=== PATIENT | male | born 1955 | race Caucasian/White ===

== ENCOUNTER 2019-05-12 11:44 | Emergency (ER) | payer BC ==
[2019-05-12] MEDS ORDERED: OXYCODONE-ACETAMINOPHEN 5-325 MG TABLET PO ONE (12:09)
--- NOTE | 2019-05-12 12:21 | ER Document Report ---
HPI - HPI Patient complains to provider of: hand injury Time Seen by Provider: 05/12/19 12:06 Onset: Just prior to arrival Onset/Duration: Sudden Quality of pain: Sharp Pain Level: 5 Context: Patient states he was outside trying to avoid a bee and ended up falling onto outstretched hand injuring his right thumb. Patient states his thumb bent backwards and that he did reduce the dislocation. Patient complains of persistent right thumb pain since then. Patient is right-hand dominant. Associated Symptoms: Other - Right thumb injury. denies: Nausea, Vomiting Exacerbated by: Movement Relieved by: Denies Similar symptoms previously: No Recently seen / treated by doctor: No - ROS ROS below otherwise negative: Yes Systems Reviewed and Negative: Yes All other systems reviewed and negative - NEURO Neurology: DENIES: Headache, Weakness - GASTROINTESTINAL Gastrointestinal: DENIES: Nausea - MUSCULOSKELETAL Musculoskeletal: REPORTS: Extremity pain - Right thumb, Swelling - DERM Skin Color: Normal Skin Problems: None Past Medical History - General Information source: Patient - Social History Smoking Status: Never Smoker Chew tobacco use (# tins/day): No Frequency of alcohol use: None Drug Abuse: None Occupation: [employer] Family History: Reviewed & Not Pertinent Patient has suicidal ideation: No Patient has homicidal ideation: No - Past Medical History Cardiac Medical History: Reports: Hx Hypercholesterolemia, Hx Hypertension Renal/ Medical History: Denies: Hx Peritoneal Dialysis Past Surgical History: Reports: Hx Herniorrhaphy Vertical Provider Document - CONSTITUTIONAL Agree With Documented VS: Yes Exam Limitations: No Limitations General Appearance: WD/WN, No Apparent Distress - INFECTION CONTROL TRAVEL OUTSIDE OF THE [place] IN LAST 30 DAYS: No - HEENT HEENT: Atraumatic, Normocephalic - NECK Neck: Normal Inspection - RESPIRATORY Respiratory: Breath Sounds Normal, No Respiratory Distress - CARDIOVASCULAR Cardiovascular: Regular Rate, Regular Rhythm Pulses: Normal: Radial - MUSCULOSKELETAL/EXTREMETIES Musculoskeletal/Extremeties: MAEW, Tender - Patient with tenderness to right CMC and MCP joint, no obvious deformity or dislocation, patient with good flexion and extension, no obvious tendon deficit. - NEURO Level of Consciousness: Awake, Alert, Appropriate Motor/Sensory: No Motor Deficit - DERM Integumentary: Warm, Dry, No Rash Course - Diagnostic Test Radiology reviewed: Image reviewed, Reports reviewed Procedures - Immobilization Right Thumb Pre-Proc Neuro Vasc Exam: Normal Immobilizer type: Thumb spica Performed by: PCT Post-Proc Neuro Vasc Exam: Normal Alignment checked and good: Yes Discharge - Discharge Clinical Impression: Sprain of right thumb Qualifiers: Encounter type: initial encounter Sprain of finger site: unspecified site Qualified Code(s): S63.601A - Unspecified sprain of right thumb, initial encounter Condition: Stable Disposition: HOME, SELF-CARE Instructions: Ice & Elevation ([facility]), Oral Narcotic Medication ([facility]), Splint Precautions ([facility]), Sprained Thumb ([facility]) Additional Instructions: Return immediately for any new or worsening symptoms Followup with your primary care provider, call tomorrow to make a followup appointment Follow-up with orthopedics for further evaluation, call today for an appointment Prescriptions: Oxycodone HCl/Acetaminophen [Percocet 5-325 mg Tablet] 1 tab PO ASDIR PRN #12 tablet PRN Reason: Forms: Return to Work Referrals: ROSALINDA GRIJALVA MD [ASSOCIATE] - Follow up tomorrow
--- NOTE | 2019-05-12 12:56 | RADIOLOGY REPORT (SQ) ---
EXAM DESCRIPTION: FINGER RIGHT COMPLETED DATE/TIME: 05/12/2019 12:45 pm REASON FOR STUDY: foosh, R thumb injury COMPARISON: None. EXAM PARAMETERS: NUMBER OF VIEWS: Three views. TECHNIQUE: AP, lateral and oblique radiographic images acquired of the right hand. LIMITATIONS: None. FINDINGS: MINERALIZATION: Normal. BONES: No acute fracture or dislocation. No worrisome bone lesions. JOINTS: No effusions. SOFT TISSUES: No soft tissue swelling. No foreign body. OTHER: No other significant finding. IMPRESSION: NEGATIVE STUDY OF THE RIGHT HAND. NO RADIOGRAPHIC EVIDENCE OF ACUTE INJURY. TECHNICAL DOCUMENTATION: JOB ID: [id number] [employer]- All Rights Reserved Reading location - IP/workstation name: [email or web address]
[2019-05-12 13:44] VITALS: BP 138/75
== END 2019-05-12 13:44 | disposition home or self-care (01) ==
LOC: ER 11:44
DX: S63.601A Unspecified sprain of right thumb, initial encounter (principal); M79.644 Pain in right finger(s); W19.XXXA Unspecified fall, initial encounter; Y93.89 Activity, other specified; I10 Essential (primary) hypertension
CPT/HCPCS: 99283

== ENCOUNTER 2019-05-14 10:36 | Day surgery (SDC) | payer BC ==
[~2019-05-14 10:36] MED LIST: CEFAZOLIN 2 GM/D5W RTU 2 GM/50 ML RTUPB IV ONE; CEFAZOLIN 2 GM/D5W RTU 2 GM/50 ML RTUPB IV PRN
[2019-05-14 11:29] LABS: HEMATOCRIT 44.6 % (37.9-51.0); HEMOGLOBIN 15.5 g/dL (13.5-17.0); MEAN CORPUSCULAR HGB CONC 34.8 g/dL (32.0-36.0); MEAN CORPUSCULAR VOLUME 89 fl (80-97); PLATELET COUNT 264 10^3/uL (150-450); RED CELL DISTRIBUTION WIDTH 13.3 % (11.5-14.0); WHITE BLOOD COUNT 5.7 10^3/uL (4.0-10.5)
[2019-05-14 11:56] LABS: ALANINE AMINOTRANSFERASE 25 U/L (21-72); ALBUMIN 4.2 g/dL (3.5-5.0); ALKALINE PHOSPHATASE 60 U/L (38-126); ANION GAP 9 (5-19); ASPARTATE AMINO TRANSFERASE 21 U/L (17-59); BILIRUBIN,DIRECT 0.2 mg/dL (0.0-0.4); BILIRUBIN,TOTAL 0.5 mg/dL (0.2-1.3); BLOOD UREA NITROGEN 15 mg/dL (7-20); CALCIUM 9.8 mg/dL (8.4-10.2); CARBON DIOXIDE 31 mmol/L (22-30); CHLORIDE 102 mmol/L (98-107); GLUCOSE 91 mg/dL (75-110); TOTAL PROTEIN 6.8 g/dL (6.3-8.2)
[2019-05-14 11:57] LABS: POTASSIUM 3.9 mmol/L (3.6-5.0)
[2019-05-14] MEDS ORDERED: LIDOCAINE 2% INJ-PF (100 MG/5 ML) SYRINGE ONE (12:03)
[2019-05-14] MEDS ORDERED: FENTANYL CITRATE INJ/PF 100 MCG/2 ML AMPUL ONE (12:03)
[2019-05-14] MEDS ORDERED: MIDAZOLAM 2 MG/2 ML INJ ONE (12:03)
[2019-05-14] MEDS ORDERED: HYDROMORPHONE HCL INJ/PF 2 MG/ML AMPULE ONE (12:03)
[2019-05-14] MEDS ORDERED: PROPOFOL INJ 200 MG/20 ML VIAL IV ONE (12:03)
[2019-05-14] MEDS ORDERED: BUPIVACAINE HCL 0.5 % INJ/PF 30 ML SDV ONE (12:15)
[2019-05-14] MEDS ORDERED: MEPERIDINE HCL/PF INJ 25 MG/1 ML DISP.SYRIN IV PRN (13:40)
[2019-05-14] MEDS ORDERED: PROMETHAZINE HCL INJ 25 MG/1 ML VIAL IV PRN ×2 (13:40)
[2019-05-14] MEDS ORDERED: FENTANYL CITRATE INJ/PF 100 MCG/2 ML AMPUL IV PRN ×3 (13:40)
[2019-05-14] MEDS ORDERED: DIPHENHYDRAMINE HCL 50 MG/ML VIAL IV PRN (13:40)
--- NOTE | 2019-05-14 14:15 | OPERATIVE REPORT E ---
Operative Report NAME: FELIBERTO MUKHERJEE : 1955 AGE: 63Y DATE OF SURGERY: 05/14/2019 ROOM: PREOPERATIVE DIAGNOSIS: Right thumb metacarpophalangeal joint dislocation with ligament injury. POSTOPERATIVE DIAGNOSIS: 1. Right thumb ulnar collateral ligament tear with Stener lesion. 2. Extensor pollicis brevis tear. OPERATION: 1. Right thumb ulnar collateral ligament repair with internal brace. 2. Extensor pollicis brevis repair. SURGEON: ROSALINDA GRIJALVA M.D. ANESTHESIA: General. BLOOD LOSS: Minimal. COMPLICATIONS: None. IMPLANTS: Arthrex small joint internal brace reconstruction kit. INDICATIONS FOR PROCEDURE: The patient is a 63-year-old man who sustained a dislocation of his right thumb metacarpophalangeal joint with persistent instability following closed reduction. DESCRIPTION OF PROCEDURE: Following the induction of a general anesthetic and administration of antibiotics, the patient was placed supine on the operating room table. Bony prominences were padded. A tourniquet was placed proximally on the lateral arm but not inflated. The right upper extremity was sterilely prepped with ChloraPrep and draped in standard fashion. The arm was exsanguinated and the tourniquet inflated to 100 mm above systolic pressure. Before proceeding, examination under anesthesia was performed which demonstrated complete rupture of the ulnar collateral ligament and instability of the MP joint. A curvilinear incision was made on the ulnar aspect of the thumb, sharply extended through skin, blunt dissection through the subcutaneous tissue with care taken to identify and protect the superficial branch of the radial nerve. Upon going deep to the skin, the ulnar collateral ligament was visualized, having been torn off the proximal phalanx. The adductor aponeurosis had already been torn and so the joint was already exposed. Looking dorsally, the dorsal capsule was torn as well as the extensor pollicis brevis was lacerated in two from its insertion on the base of the proximal phalanx. The wound was then irrigated. The extensor pollicis brevis was repaired side to side using 4-0 FiberWire suture. This restored some dorsal stability. Next, it was decided to use the internal brace technique of Arthrex to perform the ulnar collateral ligament repair. Guidewires were placed at the origin insertion of the ulnar collateral ligament. They were then overdrilled. Knotless repair of the ulnar collateral ligament was performed with sutures passed first through the insertion of the ulnar collateral ligament. This suture as well as SutureTape was then docked using the suture anchor into the base of the proximal phalanx. The SutureTape was then docked into the origin of the proximal phalanx at the metacarpal head with the MP joint bent 30 degrees to restore strength and place the internal brace in the proper alignment of the proper ulnar collateral ligament. The SutureTape was then cut, 3-0 Vicryl sutures were used to secure the dorsal aspect of the ligament to the dorsal capsule. The adductor aponeurosis was then repaired side to side to the extensor pollicis longus tendon. Irrigation was performed. Subcutaneous tissue was closed with 2-0 Vicryl. Skin was reapproximated with 3-0 subcuticular Monocryl suture and Steri-Strips were applied. A bulky sterile dressing was applied. Radiographs were taken of the hand in the operating room which demonstrated anatomical alignment of the metacarpophalangeal joint and nondenominational of the concentric reduction of the proximal phalanx of the metacarpal head. DICTATING PHYSICIAN: ROSALINDA GRIJALVA M.D. [id number] PHY#: [id number] ID: [id number] JOB#: [id number] ACCT: [id number] cc:ROSALINDA GRIJALVA M.D. >
[2019-05-14] MEDS ORDERED: OXYCODONE-ACETAMINOPHEN 5-325 MG TABLET PO PRN (14:36)
[2019-05-14] MEDS ORDERED: ONDANSETRON HCL INJ/PF 4 MG/2 ML SDV IV ONE (14:45)
[2019-05-14] MEDS ORDERED: OXYCODONE-ACETAMINOPHEN 5-325 MG TABLET ONE (14:48)
--- NOTE | 2019-05-14 14:49 | RADIOLOGY REPORT (SQ) ---
EXAM DESCRIPTION: FINGER RIGHT; NO CHG FLUORO COMPLETED DATE/TIME: 05/14/2019 2:40 pm REASON FOR STUDY: RIGHT THUMB LIGAMENT REPAIR ASST WITH FLUORO IN OR COMPARISON: 05/12/2018. FLUOROSCOPY TIME: 4 seconds. 3 images saved to PACS. TECHNIQUE: Intra-operative images acquired during surgical procedure to evaluate progress. NUMBER OF IMAGES: 3 images. LIMITATIONS: None. FINDINGS: Images of the thumb acquired during the procedure. IMPRESSION: IMAGE(S) OBTAINED DURING PROCEDURE. COMMENT: Quality ID 145: Final reports for procedures using fluoroscopy that document radiation exp osure indices, or exposure time and number of fluorographic images (if radiation exposure indices are not available) Please consult full operative report of the attending physician for description of the procedure. TECHNICAL DOCUMENTATION: JOB ID: [id number] [employer]- All Rights Reserved Reading location - IP/workstation name: [email or web address]
--- NOTE | 2019-05-14 14:49 | RADIOLOGY REPORT (SQ) ---
EXAM DESCRIPTION: FINGER RIGHT; NO CHG FLUORO COMPLETED DATE/TIME: 05/14/2019 2:40 pm REASON FOR STUDY: RIGHT THUMB LIGAMENT REPAIR ASST WITH FLUORO IN OR COMPARISON: 05/12/2018. FLUOROSCOPY TIME: 4 seconds. 3 images saved to PACS. TECHNIQUE: Intra-operative images acquired during surgical procedure to evaluate progress. NUMBER OF IMAGES: 3 images. LIMITATIONS: None. FINDINGS: Images of the thumb acquired during the procedure. IMPRESSION: IMAGE(S) OBTAINED DURING PROCEDURE. COMMENT: Quality ID 145: Final reports for procedures using fluoroscopy that document radiation exp osure indices, or exposure time and number of fluorographic images (if radiation exposure indices are not available) Please consult full operative report of the attending physician for description of the procedure. TECHNICAL DOCUMENTATION: JOB ID: [id number] [employer]- All Rights Reserved Reading location - IP/workstation name: [email or web address]
[2019-05-14 15:47] VITALS: BP 130/81
[2019-05-14] MEDS ORDERED: PHENYLEPHRINE HCL INJ/PF 10 MG/1 ML SDV ONE (18:20)
[2019-05-14] MEDS ORDERED: GLYCOPYRROLATE 1 MG/5 ML VIAL ONE (18:20)
[2019-05-14] MEDS ORDERED: ONDANSETRON HCL INJ/PF 4 MG/2 ML SDV ONE (18:20)
[2019-05-14] MEDS ORDERED: KETOROLAC TROMETHAMINE 60 MG/2 ML SDV ONE (18:20)
[2019-05-14] MEDS ORDERED: DEXAMETHASONE SOD PHOSPHATE INJ 4 MG/1 ML VIAL ONE (18:20)
--- NOTE | 2019-05-15 23:58 | EKG REPORT ---
SEVERITY:- NORMAL ECG - SINUS RHYTHM : Confirmed by: Bhupinder Sloan 15-May-2019 23:57:35
== END 2019-05-14 15:45 | disposition home or self-care (01) ==
LOC: OROUT 10:36
PROVIDERS: ATTEND Orthopaedic Surgery
DX: S63.641A Sprain of metacarpophalangeal joint of right thumb, initial encounter (principal); S63.114A Dislocation of metacarpophalangeal joint of right thumb, initial encounter; S66.211A Strain of extensor muscle, fascia and tendon of right thumb at wrist and hand level, initial encounter; S63.682A Other sprain of left thumb, initial encounter; W19.XXXA Unspecified fall, initial encounter; I10 Essential (primary) hypertension; E78.00 Pure hypercholesterolemia, unspecified; Z79.899 Other long term (current) drug therapy
CPT/HCPCS: 25270; 26540; 36415; 85027; 80053; 73140; 93005; 93010; 01830; J2250; J3490 ×2; J1100; J1885; J3010; J2001; J1170; J2370; J2405; J2704; J0690